=== PATIENT | male | born 1980 | race Caucasian/White ===

== ENCOUNTER 2016-03-01 14:46 | Emergency (ER) | payer BC ==
[2016-03-01] MEDS ORDERED: MORPHINE SULFATE 4 MG/ML SYRG IV ONE (14:58)
[2016-03-01] MEDS ORDERED: ONDANSETRON HCL/PF 2 MG/ML VIAL IV ONE (14:58)
[2016-03-01] MEDS ORDERED: NORMAL SALINE 1,000 ML IV ONE (14:58)
[2016-03-01] MEDS ORDERED: ONDANSETRON HCL/PF 2 MG/ML VIAL ONE (15:08)
[2016-03-01] MEDS ORDERED: MORPHINE SULFATE 4 MG/ML SYRG ONE (15:08)
[2016-03-01] MEDS ORDERED: RINGERS SOLUTION,LACTATED 1,000 ML IV ONE (15:39)
[2016-03-01 15:42] VITALS: BP 139/82
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
== END 2016-03-01 15:28 | disposition short-term general hospital (02) ==
LOC: ER 14:46
DX: T20.29XA Burn of second degree of multiple sites of head, face, and neck, initial encounter (principal); T22.212A Burn of second degree of left forearm, initial encounter; T23.262A Burn of second degree of back of left hand, initial encounter; T23.231A Burn of second degree of multiple right fingers (nail), not including thumb, initial encounter; F17.210 Nicotine dependence, cigarettes, uncomplicated; X08.8XXA Exposure to other specified smoke, fire and flames, initial encounter; Y93.G2 Activity, grilling and smoking food